=== PATIENT | female | born 1975 | race Two or more races ===

== ENCOUNTER 2021-01-12 21:34 | Inpatient (IN) | payer MEDICAID ==
[~2021-01-12] VITALS: Ht 165.1 cm; Wt 56.2 kg
[2021-01-12] MEDS ORDERED: SODIUM CHLORIDE 0.9% 1,000 ML IV ONE ×2 (22:30→23:15)
[2021-01-12] MEDS ORDERED: ONDANSETRON HCL 4 MG/2 ML VIAL IV ONE (22:30)
[2021-01-12] MEDS ORDERED: MORPHINE SULFATE 4 MG/ML SYR/VIAL IV ONE (22:30)
[2021-01-12 22:31] LABS: Basophils # (auto) 0.1 10 ^3/uL (0-0.2); Eosinophils # (auto) 0 10 ^3/uL (0-0.8); Eosinophils % (auto) 0.3 % (0.0-7.0); Hematocrit 42.3 % (36.0-46.0); Hemoglobin 14.3 g/dL (12.2-16.2); Lymphocytes % (auto) 12.4 % (10.0-50.0); Mean Corpuscular Hemoglobin 29.4 pg (28.0-32.0); Mean Corpuscular Hgb Conc. 33.8 g/dL (32.0-36.0); Mean Corpuscular Volume 86.9 fL (80.0-100.0); Monocytes # (auto) 0.2 10 ^3/uL (0-1.3); Monocytes % (auto) 3.1 % (0.0-12.0); Neutrophils # (auto) 6.7 10 ^3/uL (1.6-8.6); Neutrophils % (auto) 83.2 % (37.0-80.0); Red Blood Cells 4.87 10^6/uL (4.0-5.20); Red Cell Distribution Width 18.9 % (11.8-14.3)
[2021-01-12 22:51] LABS: Albumin 4.4 g/dL (3.4-5.0); BUN/Creatinine Ratio 9.9; Calcium 9.5 mg/dL (8.5-10.1); Magnesium 2.3 mg/dL (1.6-2.6); Potassium 3.1 mmol/L (3.5-5.1)
[2021-01-12 22:52] LABS: INR 1.08 (0.9-1.15); Partial Thromboplastin Time 22.9 sec (23.0-31.2)
[2021-01-12 22:57] LABS: Lactic Acid w/Reflex 2.6 mmol/L (0.4-2.0)
[2021-01-12 22:58] LABS: Bilirubin, Total 0.9 mg/dL (0.2-1.0); Total Protein 8.9 g/dL (6.4-8.2)
[2021-01-12] MEDS ORDERED: IOHEXOL 300 MG/ML 100ML BOTTLE IJ ONE (23:11)
[2021-01-12] MEDS ORDERED: VANCOMYCIN PER PHARMACY 0 MG IV SCH (23:15)
[2021-01-12] MEDS ORDERED: PIPERACILLIN-TAZOB 3.375GM 100 ML IV ONE (23:15)
[2021-01-12] MEDS ORDERED: VANCOMYCIN 1GM/250ML 250 ML IV ONE (23:30)
[2021-01-12] MEDS ORDERED: PROMETHAZINE HCL 25 MG/ML 1ML IV ONE (23:30)
[2021-01-12] MEDS ORDERED: HYDROmorphone HCL 2 MG/ML VL IV ONE (23:30)
[2021-01-13] MEDS ORDERED: HYDROmorphone HCL 2 MG/ML VL IV ONE (00:15)
[2021-01-13 00:19] LABS: Urine Bacteria FEW /hpf (None Seen); Urine Blood Negative /uL (Negative); Urine Mucus FEW (None Seen); Urine Specific Gravity 1.015 (1.001-1.035); Urine WBC <1 /hpf (0 - 5)
[2021-01-13] MEDS ORDERED: POTASSIUM CHL 20MEQ/100ML 100 ML IV ONE (01:30)
[2021-01-13] MEDS ORDERED: ONDANSETRON HCL 4 MG/2 ML VIAL IV PRN (05:00)
[2021-01-13] MEDS ORDERED: NITROGLYCERIN 0.4 MG SL TAB SL PRN (05:00)
[2021-01-13] MEDS: SODIUM CHLORIDE 0.9% 1,000 ML IV SCH ×2 (05:00→21:07)
[2021-01-13] MEDS ORDERED: MORPHINE SULFATE INJECTION 2 MG/ML SYRG IV PRN (05:00)
[2021-01-13] MEDS: HYDROcodone-ACET 5/325MG TAB PO PRN (05:40)
[2021-01-13] MEDS ORDERED: TRAZ300T16 PO (06:58)
[2021-01-13] MEDS ORDERED: OMEP20TA PO (06:58)
[2021-01-13] MEDS ORDERED: HYDR-4072 PO (06:58)
[2021-01-13] MEDS ORDERED: PROMETHAZINE HCL 25 MG/ML 1ML IV PRN (07:15)
[2021-01-13] MEDS ORDERED: HYDROmorphone HCL 2 MG/ML VL IV PRN (07:15)
[2021-01-13 08:00] VITALS: BP 122/68
[2021-01-13 08:11] LABS: Basophils # (auto) 0.1 10 ^3/uL (0-0.2); Basophils % (auto) 1.1 % (0.0-2.0); Eosinophils # (auto) 0 10 ^3/uL (0-0.8); Eosinophils % (auto) 0.3 % (0.0-7.0); Hematocrit 34.4 % (36.0-46.0); Hemoglobin 11.5 g/dL (12.2-16.2); Lymphocytes # (auto) 2.1 10 ^3/uL (0.4-5.4); Lymphocytes % (auto) 21.9 % (10.0-50.0); Mean Corpuscular Hemoglobin 29.6 pg (28.0-32.0); Mean Corpuscular Hgb Conc. 33.5 g/dL (32.0-36.0); Mean Corpuscular Volume 88.4 fL (80.0-100.0); Monocytes # (auto) 0.8 10 ^3/uL (0-1.3); Monocytes % (auto) 8.3 % (0.0-12.0); Neutrophils # (auto) 6.7 10 ^3/uL (1.6-8.6); Neutrophils % (auto) 68.4 % (37.0-80.0); Red Blood Cells 3.89 10^6/uL (4.0-5.20); Red Cell Distribution Width 19.1 % (11.8-14.3); White Blood Cell 9.8 10^3/uL (4.4-10.8)
[2021-01-13 08:30] LABS: Calcium 8.2 mg/dL (8.5-10.1); Potassium 3.7 mmol/L (3.5-5.1)
[2021-01-13 08:34] LABS: BUN/Creatinine Ratio 14.3; Bilirubin, Total 0.9 mg/dL (0.2-1.0); Total Protein 6.3 g/dL (6.4-8.2)
[2021-01-13 08:35] VITALS: BP 122/68
[2021-01-13] MEDS: ENOXAPARIN SOD 40 MG/0.4 ML SYRINGE SC SCH (10:00)
[2021-01-13] MEDS: FAMOTIDINE (10MG/ML) 2ML VL IV SCH ×2 (10:34→21:08)
[2021-01-13] MEDS ORDERED: VANCOMYCIN 1GM/250ML 250 ML IV SCH (11:00)
[2021-01-13 12:30] VITALS: BP 98/57
[2021-01-13] MEDS: PROMETHAZINE HCL 25 MG/ML 1ML IV PRN ×2 (13:15→21:08)
[2021-01-13] MEDS: HYDROmorphone HCL 2 MG/ML VL IV PRN ×2 (13:15→21:08)
[2021-01-13] MEDS ORDERED: cefTRIAXone 1GM/50ML D5W 50 ML IV ONE (13:30)
[2021-01-13] MEDS: metroNIDAZOLE 500MG/100ML 100 ML IV SCH ×2 (14:02→21:56)
[2021-01-13 16:33] VITALS: BP 110/71
[2021-01-13 22:00] VITALS: BP 124/71
[2021-01-14 00:43] LABS: Amphetamine Screen, Urine NEGATIVE (NEGATIVE); Barbiturate Scree,Urine NEGATIVE (NEGATIVE); Benzodiazephine Screen, Urine NEGATIVE (NEGATIVE); Cannabinoid Screen, Urine NEGATIVE (NEGATIVE); Cocaine Screen, Urine NEGATIVE (NEGATIVE); Opiate Scree,Urine NEGATIVE (NEGATIVE); Phencyclidine Screen, Urine NEGATIVE (NEGATIVE)
[2021-01-14] MEDS: HYDROmorphone HCL 2 MG/ML VL IV PRN ×5 (01:08→23:11)
[2021-01-14] MEDS: PROMETHAZINE HCL 25 MG/ML 1ML IV PRN ×5 (01:08→23:11)
[2021-01-14 05:03] VITALS: BP 131/73
[2021-01-14] MEDS: metroNIDAZOLE 500MG/100ML 100 ML IV SCH ×3 (05:36→21:50)
[2021-01-14 08:15] LABS: Basophils # (auto) 0 10 ^3/uL (0-0.2); Basophils % (auto) 0.8 % (0.0-2.0); Eosinophils # (auto) 0.2 10 ^3/uL (0-0.8); Eosinophils % (auto) 3.7 % (0.0-7.0); Hemoglobin 11.3 g/dL (12.2-16.2); Lymphocytes # (auto) 2.2 10 ^3/uL (0.4-5.4); Lymphocytes % (auto) 36.1 % (10.0-50.0); Mean Corpuscular Hemoglobin 28.8 pg (28.0-32.0); Mean Corpuscular Hgb Conc. 32.3 g/dL (32.0-36.0); Monocytes # (auto) 0.5 10 ^3/uL (0-1.3); Monocytes % (auto) 8.5 % (0.0-12.0); Neutrophils # (auto) 3.1 10 ^3/uL (1.6-8.6); Neutrophils % (auto) 50.9 % (37.0-80.0); Nucleated Red Blood Cells % 0.1 %; Red Blood Cells 3.93 10^6/uL (4.0-5.20); Red Cell Distribution Width 18.9 % (11.8-14.3); White Blood Cell 6.2 10^3/uL (4.4-10.8)
[2021-01-14 08:39] VITALS: BP 111/78
[2021-01-14 08:55] LABS: Albumin 2.9 g/dL (3.4-5.0); Calcium 8.5 mg/dL (8.5-10.1); Magnesium 2.4 mg/dL (1.6-2.6); Potassium 3.8 mmol/L (3.5-5.1)
[2021-01-14 09:03] LABS: BUN/Creatinine Ratio 12.7; Bilirubin, Total 0.5 mg/dL (0.2-1.0); Total Protein 5.8 g/dL (6.4-8.2)
[2021-01-14] MEDS: cefTRIAXone 1GM/50ML D5W 50 ML IV SCH (09:04)
[2021-01-14] MEDS: FAMOTIDINE (10MG/ML) 2ML VL IV SCH ×2 (09:05→21:51)
[2021-01-14] MEDS: ENOXAPARIN SOD 40 MG/0.4 ML SYRINGE SC SCH (09:05)
[2021-01-14 12:33] VITALS: BP 119/73
[2021-01-14] MEDS ORDERED: DOCUSATE SOD 100 MG CAP PO PRN (13:45)
[2021-01-14] MEDS: SODIUM CHLORIDE 0.9% 1,000 ML IV SCH (15:01)
[2021-01-14 16:34] VITALS: BP 114/71
[2021-01-14 21:31] VITALS: BP 135/87
[2021-01-15] MEDS: PROMETHAZINE HCL 25 MG/ML 1ML IV PRN ×3 (03:24→22:17)
[2021-01-15] MEDS: HYDROmorphone HCL 2 MG/ML VL IV PRN (03:24)
[2021-01-15 04:49] VITALS: BP 123/78
[2021-01-15] MEDS: SODIUM CHLORIDE 0.9% 1,000 ML IV SCH (05:42)
[2021-01-15] MEDS: metroNIDAZOLE 500MG/100ML 100 ML IV SCH ×3 (05:42→21:08)
[2021-01-15 06:17] LABS: Magnesium 2.2 mg/dL (1.6-2.6); Potassium 3.8 mmol/L (3.5-5.1)
[2021-01-15 08:30] VITALS: BP 138/79
[2021-01-15] MEDS: cefTRIAXone 1GM/50ML D5W 50 ML IV SCH (09:06)
[2021-01-15] MEDS: FAMOTIDINE (10MG/ML) 2ML VL IV SCH (09:07)
[2021-01-15] MEDS: ENOXAPARIN SOD 40 MG/0.4 ML SYRINGE SC SCH (09:07)
[2021-01-15] MEDS ORDERED: MORPHINE SULFATE INJECTION 2 MG/ML SYRG IV PRN (09:15)
[2021-01-15] MEDS ORDERED: PANTOPRAZOLE 40 MG/10 ML VIAL INJ IV ONE (11:15)
[2021-01-15 12:30] VITALS: BP 146/87
[2021-01-15 16:30] VITALS: BP 154/91
[2021-01-15] MEDS: HYDROcodone-ACET 5/325MG TAB PO PRN ×2 (18:23→23:20)
[2021-01-15] MEDS: KETOROLAC TROMETH 30 MG/ML 1ML VIAL IV PRN (19:46)
[2021-01-15] MEDS ORDERED: MORPHINE SULFATE INJECTION 2 MG/ML SYRG IV ONE (21:00)
[2021-01-15] MEDS: PANTOPRAZOLE 40 MG/10 ML VIAL INJ IV SCH (21:08)
[2021-01-15 22:00] VITALS: BP 163/105
[2021-01-15] MEDS: ACETAMINOPHEN 325 MG TAB PO PRN (22:18)
[2021-01-16] MEDS ORDERED: dilTIAZem 25 MG/5 ML VIAL IV ONE (01:15)
[2021-01-16] MEDS: KETOROLAC TROMETH 30 MG/ML 1ML VIAL IV PRN ×4 (01:25→17:43)
[2021-01-16] MEDS: PROMETHAZINE HCL 25 MG/ML 1ML IV PRN ×5 (03:12→23:00)
[2021-01-16] MEDS: HYDROcodone-ACET 5/325MG TAB PO PRN ×4 (03:13→23:01)
[2021-01-16 05:00] VITALS: BP 172/87
[2021-01-16] MEDS ORDERED: NALBUPHINE HCL 10 MG/1ml INJECTION IV ONE (05:15)
[2021-01-16] MEDS ORDERED: MORPHINE SULFATE INJECTION 2 MG/ML SYRG IV ONE (05:30)
[2021-01-16] MEDS: metroNIDAZOLE 500MG/100ML 100 ML IV SCH ×3 (05:54→22:49)
[2021-01-16] MEDS: cefTRIAXone 1GM/50ML D5W 50 ML IV SCH (08:27)
[2021-01-16 09:00] VITALS: BP 154/98
[2021-01-16] MEDS: PANTOPRAZOLE 40 MG/10 ML VIAL INJ IV SCH ×2 (09:20→22:49)
[2021-01-16] MEDS: ENOXAPARIN SOD 40 MG/0.4 ML SYRINGE SC SCH (09:21)
[2021-01-16] MEDS ORDERED: LACTULOSE 20Gm/30ML SOLN PO PRN (10:00)
[2021-01-16] MEDS: MORPHINE SULFATE INJECTION 2 MG/ML SYRG IV PRN ×3 (10:51→19:58)
[2021-01-16] MEDS ORDERED: IOHEXOL 300 MG/ML 100ML BOTTLE IJ ONE (11:57)
[2021-01-16 13:08] VITALS: BP 162/91
[2021-01-16] MEDS: SUCRALFATE 1 GM/10 ML ORAL SUSP PO SCH ×2 (16:52→22:49)
[2021-01-16 17:00] VITALS: BP 152/107
[2021-01-16] MEDS: LABETALOL HCL 5 MG/ML 4ML SYRINGE IV PRN (17:43)
[2021-01-16 22:00] VITALS: BP 158/95
[2021-01-17] MEDS: MORPHINE SULFATE INJECTION 2 MG/ML SYRG IV PRN ×5 (01:00→21:45)
[2021-01-17 05:00] VITALS: BP 154/106
[2021-01-17] MEDS: KETOROLAC TROMETH 30 MG/ML 1ML VIAL IV PRN ×2 (05:01→22:57)
[2021-01-17] MEDS: PROMETHAZINE HCL 25 MG/ML 1ML IV PRN ×4 (05:07→21:44)
[2021-01-17] MEDS: LABETALOL HCL 5 MG/ML 4ML SYRINGE IV PRN ×3 (05:30→22:57)
[2021-01-17] MEDS: metroNIDAZOLE 500MG/100ML 100 ML IV SCH ×3 (06:29→21:40)
[2021-01-17] MEDS: SUCRALFATE 1 GM/10 ML ORAL SUSP PO SCH ×4 (06:33→21:45)
[2021-01-17 07:18] LABS: Basophils # (auto) 0 10 ^3/uL (0-0.2); Basophils % (auto) 0.4 % (0.0-2.0); Eosinophils # (auto) 0 10 ^3/uL (0-0.8); Eosinophils % (auto) 0.1 % (0.0-7.0); Hematocrit 41.3 % (36.0-46.0); Hemoglobin 13.7 g/dL (12.2-16.2); Lymphocytes # (auto) 1.6 10 ^3/uL (0.4-5.4); Mean Corpuscular Hemoglobin 28.9 pg (28.0-32.0); Mean Corpuscular Hgb Conc. 33.1 g/dL (32.0-36.0); Mean Corpuscular Volume 87.4 fL (80.0-100.0); Monocytes # (auto) 0.9 10 ^3/uL (0-1.3); Monocytes % (auto) 9.3 % (0.0-12.0); Neutrophils # (auto) 6.9 10 ^3/uL (1.6-8.6); Neutrophils % (auto) 73.2 % (37.0-80.0); Nucleated Red Blood Cells % 0.1 %; Red Blood Cells 4.73 10^6/uL (4.0-5.20); Red Cell Distribution Width 17.6 % (11.8-14.3); White Blood Cell 9.4 10^3/uL (4.4-10.8)
[2021-01-17 07:40] LABS: BUN/Creatinine Ratio 13.7; Calcium 9.2 mg/dL (8.5-10.1); Magnesium 2.4 mg/dL (1.6-2.6)
[2021-01-17 07:52] LABS: Potassium 2.9 mmol/L (3.5-5.1)
[2021-01-17] MEDS: ENOXAPARIN SOD 40 MG/0.4 ML SYRINGE SC SCH (08:59)
[2021-01-17 09:00] VITALS: BP 149/108
[2021-01-17] MEDS: cefTRIAXone 1GM/50ML D5W 50 ML IV SCH (09:11)
[2021-01-17] MEDS: PANTOPRAZOLE 40 MG/10 ML VIAL INJ IV SCH ×2 (09:11→21:44)
[2021-01-17] MEDS ORDERED: POTASSIUM CHLORIDE 40 MEQ, LIDOCAINE 1% (LOCAL ANESTH.) 4 ML in SODIUM CHL 0.9% 250 ML IV ONE (09:15)
[2021-01-17] MEDS ORDERED: ONDANSETRON HCL 4 MG/2 ML VIAL IV PRN ×2 (11:30→13:30)
[2021-01-17] MEDS ORDERED: fentaNYL CITRATE 100 MCG/2 ML VL IV PRN (11:30)
[2021-01-17] MEDS ORDERED: HYDROmorphone HCL 2 MG/ML VL IV PRN (11:30)
[2021-01-17] MEDS ORDERED: MORPHINE SULFATE 4 MG/ML SYR/VIAL IV PRN (11:30)
[2021-01-17] MEDS ORDERED: amLODIPine BESYLATE 5 MG TAB PO ONE (12:15)
[2021-01-17] MEDS ORDERED: LISINOPRIL 20 MG TAB PO ONE (12:15)
[2021-01-17 13:00] VITALS: BP 155/111
[2021-01-17] MEDS ORDERED: fentaNYL CITRATE 100 MCG/2 ML VL ONE (13:05)
[2021-01-17] MEDS ORDERED: GOLYTELY 4L KIT PO ONE (14:30)
[2021-01-17] MEDS: METOCLOPRAMIDE HCL 5MG/ml INJ 2ml VIAL IV SCH ×2 (14:58→21:44)
[2021-01-17] MEDS: HYDROcodone-ACET 5/325MG TAB PO PRN (15:23)
[2021-01-17 16:55] VITALS: BP 125/74
[2021-01-17] MEDS: VANCOMYCIN HCL 125MG/5ML ORAL SOL PO SCH ×2 (17:52→21:46)
[2021-01-17] MEDS: ACETAMINOPHEN 325 MG TAB PO PRN (21:45)
[2021-01-17 22:00] VITALS: BP 151/112
[2021-01-18] MEDS: HYDROcodone-ACET 5/325MG TAB PO PRN ×3 (00:38→14:05)
[2021-01-18] MEDS: PROMETHAZINE HCL 25 MG/ML 1ML IV PRN ×4 (01:47→14:05)
[2021-01-18] MEDS: MORPHINE SULFATE INJECTION 2 MG/ML SYRG IV PRN ×3 (01:47→09:51)
[2021-01-18] MEDS: KETOROLAC TROMETH 30 MG/ML 1ML VIAL IV PRN ×2 (05:00→12:35)
[2021-01-18] MEDS: LABETALOL HCL 5 MG/ML 4ML SYRINGE IV PRN (05:12)
[2021-01-18] MEDS: METOCLOPRAMIDE HCL 5MG/ml INJ 2ml VIAL IV SCH (05:12)
[2021-01-18] MEDS: metroNIDAZOLE 500MG/100ML 100 ML IV SCH (05:13)
[2021-01-18 05:27] VITALS: BP 160/104
[2021-01-18] MEDS: VANCOMYCIN HCL 125MG/5ML ORAL SOL PO SCH ×2 (05:38→12:22)
[2021-01-18] MEDS: SUCRALFATE 1 GM/10 ML ORAL SUSP PO SCH ×2 (06:30→12:21)
[2021-01-18 07:53] LABS: Magnesium 2.6 mg/dL (1.6-2.6); Potassium 3.3 mmol/L (3.5-5.1)
[2021-01-18] MEDS: cefTRIAXone 1GM/50ML D5W 50 ML IV SCH (09:04)
[2021-01-18] MEDS: PANTOPRAZOLE 40 MG/10 ML VIAL INJ IV SCH (09:05)
[2021-01-18] MEDS: ENOXAPARIN SOD 40 MG/0.4 ML SYRINGE SC SCH (09:06)
[2021-01-18 09:21] VITALS: BP 160/105
[2021-01-18] MEDS ORDERED: amLODIPine BESYLATE 5 MG TAB PO SCH (10:00)
[2021-01-18] MEDS ORDERED: LISINOPRIL 20 MG TAB PO SCH (10:00)
[2021-01-18] MEDS ORDERED: POTASSIUM CHL 20 Meq TABLET PO ONE (11:15)
[2021-01-18] MEDS ORDERED: VANC125PO PO (11:16)
[2021-01-18] MEDS ORDERED: SUCR1TAB22 PO (11:16)
[2021-01-18] MEDS ORDERED: MET25T PO (11:49)
[2021-01-18] MEDS ORDERED: LISI20TA28 PO (11:49)
[2021-01-18] MEDS ORDERED: METOPROLOL TARTRATE 25 MG TAB PO ONE (12:00)
[2021-01-18 13:00] VITALS: BP 161/107
[2021-01-18] MEDS ORDERED: PANT40TA2 PO (13:33)
[2021-01-18] MEDS ORDERED: PANTOPRAZOLE 40 MG TAB PO ONE (14:00)
[2021-01-18 14:13] VITALS: BP 131/89
[2021-01-18] MEDS ORDERED: METOPROLOL TARTRATE 25 MG TAB PO SCH (22:00)
[2021-01-19] MEDS ORDERED: PANTOPRAZOLE 40 MG TAB PO SCH (10:00)
== END 2021-01-18 16:00 | disposition home or self-care (01) | DRG 248 ==
LOC: EDBD 21:34 → ER 21:48 → TELE 01-13 04:58 → TELE-EAST 01-13 06:29
PROVIDERS: ADMIT Nurse Practitioner Family; ATTEND Internal Medicine
PROC: 0DJ08ZZ Inspection of Upper Intestinal Tract, Via Natural or Artificial Opening Endoscopic (ICD-10-PCS; principal; 2021-01-17 13:07)
DX: A04.72 Enterocolitis due to Clostridium difficile, not specified as recurrent (principal); E87.2 Acidosis; Z20.822 Contact with and (suspected) exposure to COVID-19; K29.80 Duodenitis without bleeding; D47.3 Essential (hemorrhagic) thrombocythemia; E87.6 Hypokalemia; K21.00 Gastro-esophageal reflux disease with esophagitis, without bleeding; I10 Essential (primary) hypertension; K59.00 Constipation, unspecified; G89.4 Chronic pain syndrome; M19.90 Unspecified osteoarthritis, unspecified site; K21.9 Gastro-esophageal reflux disease without esophagitis; Z90.49 Acquired absence of other specified parts of digestive tract; Z90.710 Acquired absence of both cervix and uterus
CPT/HCPCS: 36415; 43235; 74177; 74178; 76705; 80048; 80053; 80307; 81001; 82150; 83036; 83605; 83690; 83735; 83880; 84132; 84702; 85025; 85610; 85730; 87040; 87045; 87086; 87426; 87427; 87493; 96361; 96365; 96366; 96375; 96376; C9113; G0378; J0696; J1885; J2001; J2405; J2543; J3480; J3490

== ENCOUNTER 2021-01-24 18:27 | Inpatient (IN) | payer MEDICAID ==
[~2021-01-24] VITALS: Ht 165.1 cm; Wt 60.8 kg
[~2021-01-24 18:27] MED LIST: HYDR-4072 PO; LISI20TA28 PO; MET25T PO; PANT40TA2 PO; SUCR1TAB22 PO; TRAZ300T16 PO; VANC125PO PO
[2021-01-24] MEDS ORDERED: SODIUM CHLORIDE 0.9% 1,000 ML IV ONE ×2 (20:30→21:30)
[2021-01-24 20:45] LABS: Basophils # (auto) 0.1 10 ^3/uL (0-0.2); Basophils % (auto) 0.5 % (0.0-2.0); Eosinophils # (auto) 0.4 10 ^3/uL (0-0.8); Eosinophils % (auto) 2.2 % (0.0-7.0); Hematocrit 37.2 % (36.0-46.0); Hemoglobin 12.2 g/dL (12.2-16.2); Lymphocytes # (auto) 3.2 10 ^3/uL (0.4-5.4); Lymphocytes % (auto) 16.6 % (10.0-50.0); Mean Corpuscular Hgb Conc. 32.7 g/dL (32.0-36.0); Mean Corpuscular Volume 88.6 fL (80.0-100.0); Monocytes # (auto) 0.8 10 ^3/uL (0-1.3); Monocytes % (auto) 4.1 % (0.0-12.0); Neutrophils # (auto) 14.9 10 ^3/uL (1.6-8.6); Neutrophils % (auto) 76.6 % (37.0-80.0); Platelet Count (auto) 254 10^3/uL (140-450); Red Cell Distribution Width 16.2 % (11.8-14.3); White Blood Cell 19.5 10^3/uL (4.4-10.8)
[2021-01-24 20:59] LABS: Albumin 3.8 g/dL (3.4-5.0); Anion Gap 17 (5-15); BUN/Creatinine Ratio 12.3; Blood Alcohol < 3.0 mg/dL (0-5); Blood Urea Nitrogen 39 mg/dL (7-18); Calcium 9.6 mg/dL (8.5-10.1); Carbon Dioxide 20 mmol/L (21-32); Chloride 96 mmol/L (98-107); GFR African American 21 mL/min; GFR Non-African American 17 mL/min; Glucose 57 mg/dL (74-106); Potassium 3.1 mmol/L (3.5-5.1); Sodium 133 mmol/L (136-145)
[2021-01-24 21:02] LABS: Alanine Aminotransferase 315 U/L (13-56); Alkaline Phosphatase 179 U/L (45-117); Aspartate Aminotransferase 155 U/L (15-37); Bilirubin, Total 2.1 mg/dL (0.2-1.0); Total Protein 6.8 g/dL (6.4-8.2)
[2021-01-24 21:10] LABS: Salicylate < 1.7 mg/dL (2.8-20.0)
[2021-01-24 21:27] LABS: Acetaminophen 71.1 ug/mL (10-30)
[2021-01-24 21:40] LABS: INR 1.25 (0.9-1.15)
[2021-01-24 23:47] LABS: Urine Bacteria NONE SEEN /hpf (None Seen); Urine Blood 2+ /uL (Negative); Urine Mucus FEW (None Seen); Urine WBC 16 /hpf (0 - 5)
[2021-01-24 23:55] LABS: Amphetamine Screen, Urine NEGATIVE (NEGATIVE); Barbiturate Scree,Urine NEGATIVE (NEGATIVE); Benzodiazephine Screen, Urine NEGATIVE (NEGATIVE); Cannabinoid Screen, Urine NEGATIVE (NEGATIVE); Cocaine Screen, Urine NEGATIVE (NEGATIVE)
[2021-01-25 00:03] LABS: Opiate Scree,Urine POSITIVE (NEGATIVE); Phencyclidine Screen, Urine NEGATIVE (NEGATIVE)
[2021-01-25] MEDS ORDERED: diphenhdrAMINE HCL 50 MG/1 ML VL IV ONE (08:15)
[2021-01-25] MEDS ORDERED: SODIUM CHLORIDE 0.9% 1,000 ML IV ONE (08:15)
[2021-01-25] MEDS ORDERED: ACETYLCYSTEINE PO FOR APAP TOX 200 MG/ML ML PO ONE ×2 (08:30→09:15)
[2021-01-25] MEDS ORDERED: cefTRIAXone 1GM/50ML D5W 50 ML IV ONE (08:30)
[2021-01-25 09:59] LABS: Magnesium 2.6 mg/dL (1.6-2.6)
[2021-01-25 10:00] LABS: Albumin 3.3 g/dL (3.4-5.0)
[2021-01-25 10:05] LABS: Bilirubin, Direct 1.4 mg/dL (0-0.2); Bilirubin, Total 2.4 mg/dL (0.2-1.0); Total Protein 6.2 g/dL (6.4-8.2)
[2021-01-25 10:15] LABS: INR 1.29 (0.9-1.15)
[2021-01-25] MEDS ORDERED: POTASSIUM CHL 20 Meq TABLET PO ONE (10:45)
[2021-01-25] MEDS ORDERED: NITROGLYCERIN 0.4 MG SL TAB SL PRN (10:45)
[2021-01-25] MEDS ORDERED: MORPHINE SULF INJ 2 MG/ML SYRINGE 1ML IV PRN (10:45)
[2021-01-25] MEDS: SOD CHL 0.45% 1,000 ML IV SCH ×2 (11:40→22:10)
[2021-01-25] MEDS: VANCOMYCIN HCL 125MG/5ML ORAL SOL PO SCH ×3 (12:22→21:58)
[2021-01-25 15:00] VITALS: BP 108/59
[2021-01-25 15:12] VITALS: BP 108/59
[2021-01-25 15:44] LABS: Basophils # (auto) 0.1 10 ^3/uL (0-0.2); Basophils % (auto) 0.6 % (0.0-2.0); Eosinophils # (auto) 0.5 10 ^3/uL (0-0.8); Eosinophils % (auto) 3.2 % (0.0-7.0); Hematocrit 34.3 % (36.0-46.0); Hemoglobin 11.6 g/dL (12.2-16.2); Lymphocytes # (auto) 1.9 10 ^3/uL (0.4-5.4); Lymphocytes % (auto) 12.5 % (10.0-50.0); Mean Corpuscular Hemoglobin 29.6 pg (28.0-32.0); Mean Corpuscular Hgb Conc. 33.7 g/dL (32.0-36.0); Mean Corpuscular Volume 87.6 fL (80.0-100.0); Monocytes # (auto) 0.7 10 ^3/uL (0-1.3); Monocytes % (auto) 4.9 % (0.0-12.0); Neutrophils # (auto) 11.7 10 ^3/uL (1.6-8.6); Neutrophils % (auto) 78.8 % (37.0-80.0); Platelet Count (auto) 208 10^3/uL (140-450); Red Blood Cells 3.91 10^6/uL (4.0-5.20); Red Cell Distribution Width 16.5 % (11.8-14.3); White Blood Cell 14.9 10^3/uL (4.4-10.8)
[2021-01-25] MEDS ORDERED: DICY20TA PO (15:57)
[2021-01-25] MEDS ORDERED: IBUP800T26 PO (15:57)
[2021-01-25] MEDS ORDERED: PREG150C PO (15:57)
[2021-01-25] MEDS ORDERED: ONDA-144 PO (15:57)
[2021-01-25] MEDS ORDERED: ALBU108A5 IN (15:57)
[2021-01-25] MEDS ORDERED: TRAZ100T3 PO (15:57)
[2021-01-25] MEDS ORDERED: BECL40AE11 IN (15:57)
[2021-01-25] MEDS ORDERED: SUMAPOW3 XX (15:57)
[2021-01-25 16:03] LABS: Alanine Aminotransferase 208 U/L (13-56); Albumin 2.9 g/dL (3.4-5.0); Anion Gap 14 (5-15); Aspartate Aminotransferase 67 U/L (15-37); BUN/Creatinine Ratio 18.8; Blood Urea Nitrogen 29 mg/dL (7-18); Calcium 9.2 mg/dL (8.5-10.1); Carbon Dioxide 18 mmol/L (21-32); Chloride 103 mmol/L (98-107); GFR African American 47 mL/min; GFR Non-African American 39 mL/min; Glucose 89 mg/dL (74-106); Potassium 3.4 mmol/L (3.5-5.1); Sodium 135 mmol/L (136-145)
[2021-01-25 16:06] LABS: Alkaline Phosphatase 205 U/L (45-117); Bilirubin, Total 1.5 mg/dL (0.2-1.0); Total Protein 6.1 g/dL (6.4-8.2)
[2021-01-25] MEDS: ACETYLCYSTEINE PO FOR APAP TOX 200 MG/ML ML PO SCH ×3 (16:16→22:10)
[2021-01-25 17:00] VITALS: BP 115/65
[2021-01-25 21:52] VITALS: BP 124/78
[2021-01-25] MEDS: METOPROLOL TARTRATE 25 MG TAB PO SCH (21:59)
[2021-01-26] MEDS: ACETYLCYSTEINE PO FOR APAP TOX 200 MG/ML ML PO SCH ×6 (02:39→21:53)
[2021-01-26 05:30] VITALS: BP 131/83
[2021-01-26] MEDS: VANCOMYCIN HCL 125MG/5ML ORAL SOL PO SCH ×4 (06:09→21:53)
[2021-01-26 06:20] LABS: Basophils # (auto) 0 10 ^3/uL (0-0.2); Basophils % (auto) 0.3 % (0.0-2.0); Eosinophils # (auto) 0.4 10 ^3/uL (0-0.8); Eosinophils % (auto) 3.8 % (0.0-7.0); Hematocrit 31.8 % (36.0-46.0); Hemoglobin 10.9 g/dL (12.2-16.2); Lymphocytes # (auto) 1.4 10 ^3/uL (0.4-5.4); Lymphocytes % (auto) 11.8 % (10.0-50.0); Mean Corpuscular Hemoglobin 30.2 pg (28.0-32.0); Mean Corpuscular Hgb Conc. 34.3 g/dL (32.0-36.0); Mean Corpuscular Volume 88.1 fL (80.0-100.0); Monocytes # (auto) 0.6 10 ^3/uL (0-1.3); Neutrophils # (auto) 9.3 10 ^3/uL (1.6-8.6); Neutrophils % (auto) 79.1 % (37.0-80.0); Nucleated Red Blood Cells % 0.1 %; Platelet Count (auto) 183 10^3/uL (140-450); Red Blood Cells 3.62 10^6/uL (4.0-5.20); Red Cell Distribution Width 16.6 % (11.8-14.3); White Blood Cell 11.7 10^3/uL (4.4-10.8)
[2021-01-26 06:35] LABS: Albumin 2.5 g/dL (3.4-5.0); Calcium 8.1 mg/dL (8.5-10.1); Potassium 3.4 mmol/L (3.5-5.1)
[2021-01-26 06:41] LABS: BUN/Creatinine Ratio 17.2; Bilirubin, Total 0.6 mg/dL (0.2-1.0); Total Protein 5.4 g/dL (6.4-8.2)
[2021-01-26] MEDS: SOD CHL 0.45% 1,000 ML IV SCH (06:52)
[2021-01-26 08:00] VITALS: BP 151/95
[2021-01-26] MEDS ORDERED: POTASSIUM EFFERVESENT TAB 25 MEQ PO ONE (09:00)
[2021-01-26] MEDS ORDERED: SODIUM CHLORIDE 0.9% 1,000 ML IV ONE (09:00)
[2021-01-26] MEDS: METOPROLOL TARTRATE 25 MG TAB PO SCH ×2 (10:19→22:18)
[2021-01-26] MEDS: cefTRIAXone 1GM/50ML D5W 50 ML IV SCH (10:19)
[2021-01-26 12:00] VITALS: BP 162/100
[2021-01-26] MEDS ORDERED: hydrALAZINE HCL 20 MG/ML VL IV PRN (15:00)
[2021-01-26] MEDS ORDERED: FOLIC ACID 1 MG, MULTIPLE VITAMIN 10 ML, MAGNESIUM SULF SDV 50% 8 MEQ, THIAMINE INJ 100... INJ ONE ×5 (15:15)
[2021-01-26 16:00] VITALS: BP 152/96
[2021-01-26] MEDS: MORPHINE SULF INJ 2 MG/ML SYRINGE 1ML IV PRN (21:52)
[2021-01-26 22:00] VITALS: BP 154/93
[2021-01-26 23:16] VITALS: BP 149/60
[2021-01-27] MEDS: MORPHINE SULF INJ 2 MG/ML SYRINGE 1ML IV PRN ×3 (02:31→10:49)
[2021-01-27] MEDS: ACETYLCYSTEINE PO FOR APAP TOX 200 MG/ML ML PO SCH ×4 (02:53→14:45)
[2021-01-27 05:00] VITALS: BP 143/69
[2021-01-27 06:04] LABS: Calcium 8.2 mg/dL (8.5-10.1)
[2021-01-27] MEDS: VANCOMYCIN HCL 125MG/5ML ORAL SOL PO SCH ×2 (06:07→12:00)
[2021-01-27 06:10] LABS: Albumin 2.7 g/dL (3.4-5.0); BUN/Creatinine Ratio 3.9; Bilirubin, Total 0.7 mg/dL (0.2-1.0); Total Protein 5.8 g/dL (6.4-8.2)
[2021-01-27 09:00] VITALS: BP 136/74
[2021-01-27] MEDS: METOPROLOL TARTRATE 25 MG TAB PO SCH (10:08)
[2021-01-27] MEDS: cefTRIAXone 1GM/50ML D5W 50 ML IV SCH (10:08)
[2021-01-27] MEDS ORDERED: FOLIC ACID 1 MG, MULTIPLE VITAMIN 10 ML, MAGNESIUM SULF SDV 50% 8 MEQ, THIAMINE INJ 100... INJ SCH ×5 (12:00)
[2021-01-27 17:10] VITALS: BP 148/101
[2021-01-27] MEDS ORDERED: VANCOMYCIN HCL 500MG/5ML ORAL SOL PO SCH (18:00)
== END 2021-01-27 17:00 | disposition home or self-care (01) | DRG 812 ==
LOC: ER 18:27 → TELE 18:28 → TELE-WESTW 01-25 10:48
PROVIDERS: ADMIT Nurse Practitioner Acute Care; ATTEND Internal Medicine
DX: T40.601A Poisoning by unspecified narcotics, accidental (unintentional), initial encounter (principal); N17.0 Acute kidney failure with tubular necrosis; R65.11 Systemic inflammatory response syndrome (SIRS) of non-infectious origin with acute organ dysfunction; N30.00 Acute cystitis without hematuria; E87.1 Hypo-osmolality and hyponatremia; E44.1 Mild protein-calorie malnutrition; K71.10 Toxic liver disease with hepatic necrosis, without coma; E86.0 Dehydration; F11.20 Opioid dependence, uncomplicated; T39.1X5A Adverse effect of 4-Aminophenol derivatives, initial encounter; G89.4 Chronic pain syndrome; E87.6 Hypokalemia; K21.00 Gastro-esophageal reflux disease with esophagitis, without bleeding; I10 Essential (primary) hypertension; Z68.22 Body mass index [BMI] 22.0-22.9, adult; F19.10 Other psychoactive substance abuse, uncomplicated; Z20.822 Contact with and (suspected) exposure to COVID-19; F32.9 Major depressive disorder, single episode, unspecified; F41.9 Anxiety disorder, unspecified; M19.90 Unspecified osteoarthritis, unspecified site; Z82.3 Family history of stroke; Z82.49 Family history of ischemic heart disease and other diseases of the circulatory system; Z90.49 Acquired absence of other specified parts of digestive tract; Z90.710 Acquired absence of both cervix and uterus; Z91.5 Personal history of self-harm; Y92.89 Other specified places as the place of occurrence of the external cause
CPT/HCPCS: 36415; 71046; 74176; 80053; 80076; 80307; 80320; 80329; 81001; 81025; 83605; 83690; 83735; 84484; 85025; 85610; 87081; 87426; 87493; 93005; 96361; 96365; 96375; G0378; J0696

== ENCOUNTER 2021-04-28 14:28 | Emergency (ER) | payer MEDICAID ==
[~2021-04-28] VITALS: Ht 162.6 cm; Wt 54.0 kg
[~2021-04-28 14:28] MED LIST changes: +ALBU108A5 IN; +BECL40AE11 IN; +DICY20TA PO; -HYDR-4072 PO; +ONDA-144 PO; +PREG150C PO; +SUMAPOW3 XX; +TRAZ100T3 PO; -TRAZ300T16 PO
[2021-04-28 14:30] VITALS: BP 158/94
[2021-04-28 15:39] LABS: Urine Bacteria NONE SEEN /hpf (None Seen); Urine Blood Negative /uL (Negative); Urine Mucus FEW (None Seen); Urine Specific Gravity 1.017 (1.001-1.035); Urine WBC 1 /hpf (0 - 5)
[2021-04-28] MEDS ORDERED: ONDANSETRON ODT 4 MG TAB PO ONE (15:45)
[2021-04-28 16:24] LABS: Basophils # (auto) 0.1 10 ^3/uL (0-0.2); Basophils % (auto) 0.7 % (0.0-2.0); Eosinophils # (auto) 0 10 ^3/uL (0-0.8); Eosinophils % (auto) 0.1 % (0.0-7.0); Hematocrit 45.9 % (36.0-46.0); Hemoglobin 15.4 g/dL (12.2-16.2); Lymphocytes # (auto) 1.2 10 ^3/uL (0.4-5.4); Mean Corpuscular Hemoglobin 28.9 pg (28.0-32.0); Mean Corpuscular Hgb Conc. 33.5 g/dL (32.0-36.0); Mean Corpuscular Volume 86.3 fL (80.0-100.0); Monocytes # (auto) 0.4 10 ^3/uL (0-1.3); Neutrophils # (auto) 7.6 10 ^3/uL (1.6-8.6); Neutrophils % (auto) 82.2 % (37.0-80.0); Red Blood Cells 5.31 10^6/uL (4.0-5.20); Red Cell Distribution Width 14.9 % (11.8-14.3); White Blood Cell 9.3 10^3/uL (4.4-10.8)
[2021-04-28] MEDS ORDERED: PROMETHAZINE HCL 25 MG/ML 1ML IV ONE (16:30)
[2021-04-28 16:37] LABS: Albumin 4.3 g/dL (3.4-5.0); Calcium 9.9 mg/dL (8.5-10.1); Potassium 3.3 mmol/L (3.5-5.1)
[2021-04-28 16:42] LABS: BUN/Creatinine Ratio 17.6; Bilirubin, Total 1.6 mg/dL (0.2-1.0); Total Protein 9.4 g/dL (6.4-8.2)
[2021-04-28 17:52] LABS: Amphetamine Screen, Urine NEGATIVE (NEGATIVE); Barbiturate Scree,Urine NEGATIVE (NEGATIVE); Benzodiazephine Screen, Urine NEGATIVE (NEGATIVE); Cannabinoid Screen, Urine NEGATIVE (NEGATIVE); Cocaine Screen, Urine NEGATIVE (NEGATIVE); Opiate Scree,Urine NEGATIVE (NEGATIVE); Phencyclidine Screen, Urine NEGATIVE (NEGATIVE)
== END 2021-04-28 19:54 | disposition left against medical advice (07) ==
LOC: ER 14:28
DX: R10.84 Generalized abdominal pain (principal); R11.2 Nausea with vomiting, unspecified; R19.7 Diarrhea, unspecified; K21.9 Gastro-esophageal reflux disease without esophagitis; I10 Essential (primary) hypertension; Z90.49 Acquired absence of other specified parts of digestive tract; Z90.710 Acquired absence of both cervix and uterus; Z79.899 Other long term (current) drug therapy
CPT/HCPCS: 36415; 74176; 80053; 80307; 81001; 81025; 85025; 96374; 99284; J2550; Q0162

== ENCOUNTER 2021-06-16 23:36 | Emergency (ER) | payer MEDICAID ==
[~2021-06-16] VITALS: Ht 162.6 cm; Wt 53.1 kg
[2021-06-17] MEDS ORDERED: SODIUM CHLORIDE 0.9% 1,000 ML IV ONE (11:45)
[2021-06-17] MEDS ORDERED: ONDANSETRON HCL 4 MG/2 ML VIAL IV ONE ×2 (11:45→16:45)
[2021-06-17] MEDS ORDERED: MORPHINE SULFATE 4 MG/ML SYR/VIAL IV ONE (11:45)
[2021-06-17] MEDS ORDERED: SODIUM CHLORIDE 0.9% 500 ML IVB ONE (11:45)
[2021-06-17 12:04] LABS: Albumin 4.3 g/dL (3.4-5.0); Calcium 9.8 mg/dL (8.5-10.1); Magnesium 2.3 mg/dL (1.6-2.6)
[2021-06-17 12:08] LABS: BUN/Creatinine Ratio 14.5; Bilirubin, Total 1.1 mg/dL (0.2-1.0)
[2021-06-17 12:16] LABS: Basophils # (auto) 0.1 10 ^3/uL (0-0.2); Basophils % (auto) 0.8 % (0.0-2.0); Eosinophils # (auto) 0 10 ^3/uL (0-0.8); Hematocrit 43.7 % (36.0-46.0); Hemoglobin 14.7 g/dL (12.2-16.2); Lymphocytes # (auto) 1.8 10 ^3/uL (0.4-5.4); Lymphocytes % (auto) 14.3 % (10.0-50.0); Mean Corpuscular Hemoglobin 28.5 pg (28.0-32.0); Mean Corpuscular Hgb Conc. 33.5 g/dL (32.0-36.0); Monocytes # (auto) 0.5 10 ^3/uL (0-1.3); Monocytes % (auto) 4.1 % (0.0-12.0); Neutrophils # (auto) 9.9 10 ^3/uL (1.6-8.6); Neutrophils % (auto) 80.8 % (37.0-80.0); Red Blood Cells 5.14 10^6/uL (4.0-5.20); Red Cell Distribution Width 16.4 % (11.8-14.3); White Blood Cell 12.3 10^3/uL (4.4-10.8)
[2021-06-17 12:24] LABS: Potassium 2.7 mmol/L (3.5-5.1)
[2021-06-17] MEDS ORDERED: POTASSIUM EFFERVESENT TAB 25 MEQ PO ONE (12:30)
[2021-06-17] MEDS ORDERED: diphenhdrAMINE HCL 50 MG/1 ML VL IV ONE (13:45)
[2021-06-17 14:35] LABS: Urine WBC None Seen /hpf (0 - 5)
[2021-06-17 14:48] LABS: Urine Bacteria NONE SEEN /hpf (None Seen); Urine Blood TRACE /uL (Negative); Urine Mucus FEW (None Seen); Urine Specific Gravity 1.009 (1.001-1.035)
[2021-06-17] MEDS ORDERED: cloNIDine HCL 0.1 MG TAB PO ONE (15:00)
[2021-06-17] MEDS ORDERED: IOHEXOL 300 MG/ML 100ML BOTTLE IJ ONE (15:08)
[2021-06-17] MEDS ORDERED: MORPHINE SULFATE INJECTION 2 MG/ML SYRG IV ONE (16:45)
[2021-06-17 17:43] VITALS: BP 177/98
== END 2021-06-17 19:06 | disposition home or self-care (01) ==
LOC: ER 23:36 → EDBD 23:36 → ER 06-17 06:52
DX: R10.31 Right lower quadrant pain (principal); E87.6 Hypokalemia; I10 Essential (primary) hypertension; R11.2 Nausea with vomiting, unspecified; R19.7 Diarrhea, unspecified; Z87.39 Personal history of other diseases of the musculoskeletal system and connective tissue; K21.9 Gastro-esophageal reflux disease without esophagitis; Z90.49 Acquired absence of other specified parts of digestive tract; Z90.710 Acquired absence of both cervix and uterus; Z79.2 Long term (current) use of antibiotics; Z79.899 Other long term (current) drug therapy
CPT/HCPCS: 36415; 71046; 74177; 80053; 81001; 83690; 83735; 84702; 85025; 93005; 96361; 96374; 96375; 96376; 99285; J1200; J2270; J2405; J7030; J7040; Q9967

== ENCOUNTER → 2021-10-28 12:54 | Emergency (ER) | payer MEDICAID ==
[~2021-10-28] VITALS: Ht 162.6 cm; Wt 56.7 kg
[~2021-10-28 12:54] MED LIST changes: +KETOROLAC TROMETH 30 MG/ML 1ML VIAL IV ONE; +SODIUM CHLORIDE 0.9% 1,000 ML IV ONE
[2021-10-28 12:55] VITALS: BP 162/91
[2021-10-28 14:39] LABS: Basophils # (auto) 0.1 10 ^3/uL (0-0.2); Basophils % (auto) 1.6 % (0.0-2.0); Eosinophils # (auto) 0.2 10 ^3/uL (0-0.8); Eosinophils % (auto) 2.6 % (0.0-7.0); Hematocrit 37.5 % (36.0-46.0); Hemoglobin 12.4 g/dL (12.2-16.2); Lymphocytes # (auto) 1.7 10 ^3/uL (0.4-5.4); Mean Corpuscular Hgb Conc. 32.9 g/dL (32.0-36.0); Mean Corpuscular Volume 84.8 fL (80.0-100.0); Monocytes # (auto) 0.5 10 ^3/uL (0-1.3); Monocytes % (auto) 7.8 % (0.0-12.0); Red Blood Cells 4.42 10^6/uL (4.0-5.20); Red Cell Distribution Width 15.8 % (11.8-14.3); White Blood Cell 6.5 10^3/uL (4.4-10.8)
[2021-10-28 14:56] LABS: Albumin 3.5 g/dL (3.4-5.0); Calcium 8.6 mg/dL (8.5-10.1); Potassium 4.3 mmol/L (3.5-5.1)
[2021-10-28 14:59] LABS: BUN/Creatinine Ratio 32.3; Bilirubin, Total 0.5 mg/dL (0.2-1.0); Total Protein 6.8 g/dL (6.4-8.2)
[2021-10-28 16:14] LABS: Magnesium 2.3 mg/dL (1.6-2.6)
[2021-10-28 18:19] LABS: Urine Bacteria NONE SEEN /hpf (None Seen); Urine Blood Negative /uL (Negative); Urine Specific Gravity 1.024 (1.001-1.035); Urine WBC <1 /hpf (0 - 5)
== END | disposition home or self-care (01) ==
LOC: ER 12:54
DX: R10.13 Epigastric pain (principal); I10 Essential (primary) hypertension; K21.9 Gastro-esophageal reflux disease without esophagitis; Z90.49 Acquired absence of other specified parts of digestive tract; Z90.710 Acquired absence of both cervix and uterus
CPT/HCPCS: 36415; 71046; 74176; 80053; 81001; 83690; 83735; 84484; 85025; 93005

== ENCOUNTER 2022-02-18 10:42 | Emergency (ER) | payer MEDICAID ==
[~2022-02-18] VITALS: Ht 165.1 cm; Wt 59.0 kg
[~2022-02-18 10:42] MED LIST changes: -KETOROLAC TROMETH 30 MG/ML 1ML VIAL IV ONE; -SODIUM CHLORIDE 0.9% 1,000 ML IV ONE
[2022-02-18 10:48] VITALS: BP 177/103
[2022-02-18 11:50] LABS: Urine Bacteria NONE SEEN /hpf (None Seen); Urine Blood TRACE /uL (Negative); Urine Mucus FEW (None Seen); Urine Specific Gravity 1.028 (1.001-1.035); Urine WBC 2 /hpf (0 - 5)
== END 2022-02-18 12:22 | disposition left against medical advice (07) ==
LOC: ER 10:42
DX: R10.9 Unspecified abdominal pain (principal); R11.2 Nausea with vomiting, unspecified; Z53.21 Procedure and treatment not carried out due to patient leaving prior to being seen by health care provider
CPT/HCPCS: 81001

== ENCOUNTER 2022-04-23 16:38 | Inpatient (IN) | payer MEDICAID ==
[~2022-04-23] VITALS: Ht 162.6 cm; Wt 70.1 kg
[~2022-04-23 16:38] MED LIST changes: -PREG150C PO; -SUMAPOW3 XX
[2022-04-23] MEDS ORDERED: AMMONIA 0.33 ML INHALANT IN ONE (17:17)
[2022-04-23 17:56] LABS: Basophils # (auto) 0 10 ^3/uL (0-0.2); Basophils % (auto) 0.5 % (0.0-2.0); Eosinophils # (auto) 0.1 10 ^3/uL (0-0.8); Eosinophils % (auto) 1.3 % (0.0-7.0); Hematocrit 34.6 % (36.0-46.0); Hemoglobin 11.1 g/dL (12.2-16.2); Lymphocytes # (auto) 2.4 10 ^3/uL (0.4-5.4); Lymphocytes % (auto) 26.2 % (10.0-50.0); Mean Corpuscular Hgb Conc. 31.9 g/dL (32.0-36.0); Mean Corpuscular Volume 87.8 fL (80.0-100.0); Monocytes # (auto) 0.6 10 ^3/uL (0-1.3); Monocytes % (auto) 6.1 % (0.0-12.0); Neutrophils % (auto) 65.9 % (37.0-80.0); Red Blood Cells 3.94 10^6/uL (4.0-5.20); Red Cell Distribution Width 15.8 % (11.8-14.3); White Blood Cell 9.1 10^3/uL (4.4-10.8)
[2022-04-23 18:14] LABS: Calcium 8.5 mg/dL (8.5-10.1); Magnesium 2.2 mg/dL (1.6-2.6); Potassium 3.9 mmol/L (3.5-5.1)
[2022-04-23 18:17] LABS: BUN/Creatinine Ratio 21.4; Bilirubin, Total 0.3 mg/dL (0.2-1.0); Total Protein 6.4 g/dL (6.4-8.2)
[2022-04-23] MEDS ORDERED: FUROSEMIDE 40 MG/4 ML VIAL IV ONE (21:00)
[2022-04-23] MEDS ORDERED: ONDANSETRON HCL 4 MG/2 ML VIAL IV PRN (22:45)
[2022-04-24 00:07] LABS: Urine Bacteria NONE SEEN /hpf (None Seen); Urine Blood Negative /uL (Negative); Urine Mucus FEW (None Seen); Urine WBC 1 /hpf (0 - 5)
[2022-04-24 06:11] LABS: Basophils # (auto) 0 10 ^3/uL (0-0.2); Basophils % (auto) 0.5 % (0.0-2.0); Eosinophils # (auto) 0.1 10 ^3/uL (0-0.8); Eosinophils % (auto) 1.8 % (0.0-7.0); Hematocrit 36.2 % (36.0-46.0); Hemoglobin 11.7 g/dL (12.2-16.2); Lymphocytes % (auto) 27.2 % (10.0-50.0); Mean Corpuscular Hemoglobin 28.2 pg (28.0-32.0); Mean Corpuscular Hgb Conc. 32.3 g/dL (32.0-36.0); Mean Corpuscular Volume 87.1 fL (80.0-100.0); Monocytes # (auto) 0.6 10 ^3/uL (0-1.3); Monocytes % (auto) 8.2 % (0.0-12.0); Neutrophils # (auto) 4.6 10 ^3/uL (1.6-8.6); Neutrophils % (auto) 62.3 % (37.0-80.0); Red Blood Cells 4.16 10^6/uL (4.0-5.20); Red Cell Distribution Width 16.2 % (11.8-14.3); White Blood Cell 7.4 10^3/uL (4.4-10.8)
[2022-04-24 06:17] LABS: Potassium 3.6 mmol/L (3.5-5.1)
[2022-04-24 06:19] LABS: BUN/Creatinine Ratio 23.7; Calcium 8.7 mg/dL (8.5-10.1)
[2022-04-24 06:21] LABS: Bilirubin, Total 0.5 mg/dL (0.2-1.0); Total Protein 6.4 g/dL (6.4-8.2)
[2022-04-24] MEDS: ACETAMINOPHEN 500 MG TAB PO PRN ×3 (08:33→23:36)
[2022-04-24] MEDS ORDERED: OXYC325T14 PO (18:03)
[2022-04-24] MEDS ORDERED: HYDR4TAB2 PO (18:03)
[2022-04-24] MEDS ORDERED: OXYCODONE W/ ACETAMINOPHEN 5/325MG TABLET PO PRN (18:45)
[2022-04-24] MEDS ORDERED: ACETAMINOPHEN 500 MG TAB PO PRN (19:15)
[2022-04-24] MEDS: OXYCODONE W/ ACETAMINOPHEN 5/325MG TABLET PO PRN (19:30)
[2022-04-24 21:43] LABS: Alcohol, Urine < 3.0 mg/dL (0-10); Amphetamine Screen, Urine NEGATIVE (NEGATIVE); Barbiturate Scree,Urine NEGATIVE (NEGATIVE); Benzodiazephine Screen, Urine NEGATIVE (NEGATIVE); Cannabinoid Screen, Urine NEGATIVE (NEGATIVE); Cocaine Screen, Urine NEGATIVE (NEGATIVE); Opiate Scree,Urine NEGATIVE (NEGATIVE); Phencyclidine Screen, Urine NEGATIVE (NEGATIVE)
[2022-04-24 22:00] VITALS: BP 134/79
[2022-04-25] MEDS: OXYCODONE W/ ACETAMINOPHEN 5/325MG TABLET PO PRN ×2 (01:05→07:00)
[2022-04-25 05:00] VITALS: BP 115/73
[2022-04-25] MEDS ORDERED: BUSP10TA90 PO (05:36)
[2022-04-25 06:34] LABS: Basophils # (auto) 0 10 ^3/uL (0-0.2); Basophils % (auto) 0.4 % (0.0-2.0); Eosinophils # (auto) 0.2 10 ^3/uL (0-0.8); Eosinophils % (auto) 3.2 % (0.0-7.0); Hematocrit 36.4 % (36.0-46.0); Hemoglobin 12.2 g/dL (12.2-16.2); Lymphocytes # (auto) 2.4 10 ^3/uL (0.4-5.4); Lymphocytes % (auto) 36.2 % (10.0-50.0); Mean Corpuscular Hemoglobin 29.1 pg (28.0-32.0); Mean Corpuscular Hgb Conc. 33.4 g/dL (32.0-36.0); Mean Corpuscular Volume 87.2 fL (80.0-100.0); Monocytes # (auto) 0.5 10 ^3/uL (0-1.3); Monocytes % (auto) 8.1 % (0.0-12.0); Neutrophils # (auto) 3.4 10 ^3/uL (1.6-8.6); Neutrophils % (auto) 52.1 % (37.0-80.0); Nucleated Red Blood Cells % 0.1 %; Red Blood Cells 4.18 10^6/uL (4.0-5.20); Red Cell Distribution Width 16.1 % (11.8-14.3); White Blood Cell 6.5 10^3/uL (4.4-10.8)
[2022-04-25 06:51] LABS: Albumin 3.1 g/dL (3.4-5.0); BUN/Creatinine Ratio 25.3; Calcium 8.7 mg/dL (8.5-10.1); Potassium 4.1 mmol/L (3.5-5.1)
[2022-04-25 06:54] LABS: Bilirubin, Total 0.3 mg/dL (0.2-1.0); Total Protein 6.7 g/dL (6.4-8.2)
[2022-04-25 09:00] VITALS: BP 123/85
[2022-04-25] MEDS ORDERED: LORA2TAB89 PO (11:07)
[2022-04-25 13:00] VITALS: BP 130/73
[2022-04-25] MEDS: HYDROmorphone HCL 2 MG TAB PO PRN ×2 (13:32→20:10)
[2022-04-25] MEDS ORDERED: HYDROmorphone HCL 2 MG TAB PO SCH (14:00)
[2022-04-25] MEDS ORDERED: ALPRAZolam 0.5 MG TAB PO PRN (15:45)
[2022-04-25 16:39] VITALS: BP 129/82
[2022-04-25] MEDS: busPIRone HCL 10 MG TAB PO SCH (21:29)
[2022-04-25 22:00] VITALS: BP 144/84
[2022-04-26] MEDS: ACETAMINOPHEN 500 MG TAB PO PRN (01:08)
[2022-04-26] MEDS: HYDROmorphone HCL 2 MG TAB PO PRN (04:04)
[2022-04-26 04:57] VITALS: BP 120/80
[2022-04-26 09:00] VITALS: BP 150/75
[2022-04-26] MEDS: busPIRone HCL 10 MG TAB PO SCH (09:22)
[2022-04-26] MEDS ORDERED: PANTOPRAZOLE 40 MG TAB PO SCH (10:00)
[2022-04-26 13:00] VITALS: BP 116/76
[2022-04-26 16:23] VITALS: BP 132/93
[2022-04-26 16:54] VITALS: BP 128/79
== END 2022-04-26 18:10 | disposition home or self-care (01) | DRG 861 ==
LOC: ER 16:38 → TELE-WESTW 16:42 → TELE 21:45 → TELE-WESTW 04-24 17:42
PROVIDERS: ADMIT Internal Medicine; ATTEND Internal Medicine
DX: R53.1 Weakness (principal); G93.40 Encephalopathy, unspecified; F31.9 Bipolar disorder, unspecified; F41.9 Anxiety disorder, unspecified; R55 Syncope and collapse; I10 Essential (primary) hypertension; M06.9 Rheumatoid arthritis, unspecified; Z20.822 Contact with and (suspected) exposure to COVID-19; K21.9 Gastro-esophageal reflux disease without esophagitis; Z88.8 Allergy status to other drugs, medicaments and biological substances; Z79.899 Other long term (current) drug therapy; Z82.3 Family history of stroke; Z82.49 Family history of ischemic heart disease and other diseases of the circulatory system; Z83.3 Family history of diabetes mellitus; Z90.49 Acquired absence of other specified parts of digestive tract; Z90.710 Acquired absence of both cervix and uterus
CPT/HCPCS: 36415; 71045; 80053; 80307; 80320; 81001; 82140; 83605; 83735; 83880; 84443; 84484; 85025; 87040; 93005; 93306; G0378

== ENCOUNTER 2022-04-30 09:58 | Inpatient (IN) | payer MEDICAID ==
[~2022-04-30] VITALS: Ht 165.1 cm; Wt 69.6 kg
[~2022-04-30 09:58] MED LIST changes: +BUSP10TA90 PO; -DICY20TA PO; +HYDR4TAB2 PO; -LISI20TA28 PO; +LORA2TAB89 PO; -MET25T PO; -SUCR1TAB22 PO; -TRAZ100T3 PO; -VANC125PO PO
[2022-04-30 11:03] LABS: Urine Bacteria MANY /hpf (None Seen); Urine Blood 1+ /uL (Negative); Urine WBC 217 /hpf (0 - 5)
[2022-04-30 11:35] LABS: Basophils # (auto) 0 10 ^3/uL (0-0.2); Basophils % (auto) 0.2 % (0.0-2.0); Eosinophils # (auto) 0 10 ^3/uL (0-0.8); Eosinophils % (auto) 0.2 % (0.0-7.0); Hematocrit 36.6 % (36.0-46.0); Hemoglobin 11.6 g/dL (12.2-16.2); Lymphocytes # (auto) 0.8 10 ^3/uL (0.4-5.4); Lymphocytes % (auto) 5.9 % (10.0-50.0); Mean Corpuscular Hemoglobin 28.1 pg (28.0-32.0); Mean Corpuscular Hgb Conc. 31.9 g/dL (32.0-36.0); Mean Corpuscular Volume 88.2 fL (80.0-100.0); Monocytes # (auto) 0.4 10 ^3/uL (0-1.3); Neutrophils # (auto) 12.1 10 ^3/uL (1.6-8.6); Neutrophils % (auto) 90.7 % (37.0-80.0); Red Blood Cells 4.14 10^6/uL (4.0-5.20); White Blood Cell 13.3 10^3/uL (4.4-10.8)
[2022-04-30 11:59] LABS: Albumin 3.1 g/dL (3.4-5.0); Calcium 8.9 mg/dL (8.5-10.1); Potassium 4.2 mmol/L (3.5-5.1)
[2022-04-30 12:04] LABS: BUN/Creatinine Ratio 23.5; Bilirubin, Total 0.5 mg/dL (0.2-1.0); Total Protein 7.8 g/dL (6.4-8.2)
[2022-04-30] MEDS ORDERED: cefTRIAXone 1GM/50ML D5W 50 ML IV ONE (14:30)
[2022-04-30] MEDS ORDERED: IOHEXOL 350 MG/ML 100ML IJ ONE (14:43)
[2022-04-30] MEDS ORDERED: NITROGLYCERIN 0.4 MG SL TAB SL PRN (16:45)
[2022-04-30] MEDS ORDERED: ACETAMINOPHEN 325 MG TAB PO PRN (16:45)
[2022-04-30] MEDS ORDERED: AZITHROMYCIN 500MG/ 250ML 250 ML IV SCH (16:55)
[2022-04-30 18:19] LABS: Basophils # (auto) 0 10 ^3/uL (0-0.2); Basophils % (auto) 0.4 % (0.0-2.0); Eosinophils # (auto) 0.1 10 ^3/uL (0-0.8); Eosinophils % (auto) 0.4 % (0.0-7.0); Hematocrit 33.4 % (36.0-46.0); Hemoglobin 10.6 g/dL (12.2-16.2); Lymphocytes # (auto) 1.8 10 ^3/uL (0.4-5.4); Lymphocytes % (auto) 13.9 % (10.0-50.0); Mean Corpuscular Hgb Conc. 31.9 g/dL (32.0-36.0); Mean Corpuscular Volume 87.7 fL (80.0-100.0); Monocytes # (auto) 0.8 10 ^3/uL (0-1.3); Monocytes % (auto) 5.7 % (0.0-12.0); Neutrophils # (auto) 10.5 10 ^3/uL (1.6-8.6); Neutrophils % (auto) 79.6 % (37.0-80.0); Red Blood Cells 3.81 10^6/uL (4.0-5.20); Red Cell Distribution Width 15.9 % (11.8-14.3); White Blood Cell 13.2 10^3/uL (4.4-10.8)
[2022-04-30] MEDS: ONDANSETRON HCL 4 MG/2 ML VIAL IV PRN (20:58)
[2022-04-30] MEDS: MORPHINE SULFATE INJ 2 MG/ml SYRG IV PRN (21:01)
[2022-04-30 22:50] VITALS: BP 114/59
[2022-05-01] VITALS (7 sets, daily range): BP systolic 96–136; BP diastolic 58–79
[2022-05-01] MEDS: ONDANSETRON HCL 4 MG/2 ML VIAL IV PRN ×2 (01:08→05:52)
[2022-05-01] MEDS: MORPHINE SULFATE INJ 2 MG/ml SYRG IV PRN ×2 (01:08→05:54)
[2022-05-01] MEDS ORDERED: LORazepam 0.5 MG TAB PO PRN (05:00)
[2022-05-01] MEDS: diphenhdrAMINE HCL 25 MG CAP PO PRN ×2 (05:54→20:44)
[2022-05-01 06:49] LABS: Albumin 2.5 g/dL (3.4-5.0); Calcium 8.5 mg/dL (8.5-10.1); Potassium 4.3 mmol/L (3.5-5.1)
[2022-05-01 06:53] LABS: BUN/Creatinine Ratio 23.3; Bilirubin, Total 0.5 mg/dL (0.2-1.0); Total Protein 6.6 g/dL (6.4-8.2)
[2022-05-01] MEDS: ENOXAPARIN SOD 40 MG/0.4 ML SYRINGE SC SCH (09:10)
[2022-05-01] MEDS: PANTOPRAZOLE 40 MG TAB PO SCH (09:11)
[2022-05-01] MEDS: busPIRone HCL 10 MG TAB PO SCH ×2 (09:11→21:19)
[2022-05-01] MEDS ORDERED: cefTRIAXone 1GM/50ML D5W 50 ML IV SCH (10:00)
[2022-05-01] MEDS: HYDROmorphone HCL 2 MG TAB PO SCH ×2 (14:02→21:21)
[2022-05-01] MEDS ORDERED: VANCOMYCIN PER PHARMACY 0 MG IV STA (15:19)
[2022-05-01] MEDS ORDERED: VANCOMYCIN PER PHARMACY 0 MG IV SCH (15:45)
[2022-05-01] MEDS: VANCOMYCIN 1GM/250ML 250 ML IV SCH (15:56)
[2022-05-01 16:45] LABS: Basophils # (auto) 0 10 ^3/uL (0-0.2); Basophils % (auto) 0.5 % (0.0-2.0); Eosinophils # (auto) 0.3 10 ^3/uL (0-0.8); Eosinophils % (auto) 3.2 % (0.0-7.0); Hemoglobin 12.3 g/dL (12.2-16.2); Lymphocytes # (auto) 2.3 10 ^3/uL (0.4-5.4); Lymphocytes % (auto) 26.5 % (10.0-50.0); Mean Corpuscular Hemoglobin 27.7 pg (28.0-32.0); Mean Corpuscular Hgb Conc. 31.6 g/dL (32.0-36.0); Mean Corpuscular Volume 87.8 fL (80.0-100.0); Monocytes # (auto) 0.5 10 ^3/uL (0-1.3); Monocytes % (auto) 5.5 % (0.0-12.0); Neutrophils # (auto) 5.6 10 ^3/uL (1.6-8.6); Neutrophils % (auto) 64.3 % (37.0-80.0); Red Blood Cells 4.44 10^6/uL (4.0-5.20); Red Cell Distribution Width 15.5 % (11.8-14.3); White Blood Cell 8.7 10^3/uL (4.4-10.8)
[2022-05-02] MEDS: VANCOMYCIN 1GM/250ML 250 ML IV SCH ×2 (02:04→11:35)
[2022-05-02 05:00] VITALS: BP 107/73
[2022-05-02] MEDS: HYDROmorphone HCL 2 MG TAB PO SCH ×3 (06:14→21:34)
[2022-05-02] MEDS: ENOXAPARIN SOD 40 MG/0.4 ML SYRINGE SC SCH (08:33)
[2022-05-02] MEDS: PANTOPRAZOLE 40 MG TAB PO SCH (08:33)
[2022-05-02] MEDS: busPIRone HCL 10 MG TAB PO SCH ×2 (08:34→21:33)
[2022-05-02 08:58] VITALS: BP 115/67
[2022-05-02 09:00] LABS: Potassium 4.2 mmol/L (3.5-5.1)
[2022-05-02 09:07] LABS: Albumin 2.6 g/dL (3.4-5.0); BUN/Creatinine Ratio 23.1; Bilirubin, Total 0.3 mg/dL (0.2-1.0); Calcium 8.5 mg/dL (8.5-10.1); Total Protein 6.3 g/dL (6.4-8.2)
[2022-05-02 13:00] VITALS: BP_SYST 115; BP_SYST 120; BP_DIAS 66; BP_DIAS 70
[2022-05-02 16:50] VITALS: BP 139/84
[2022-05-02] MEDS ORDERED: diphenhdrAMINE HCL 25 MG CAP PO PRN (18:00)
[2022-05-02 19:49] LABS: Basophils # (auto) 0 10 ^3/uL (0-0.2); Basophils % (auto) 0.7 % (0.0-2.0); Eosinophils # (auto) 0.3 10 ^3/uL (0-0.8); Eosinophils % (auto) 5.3 % (0.0-7.0); Hematocrit 36.2 % (36.0-46.0); Hemoglobin 11.5 g/dL (12.2-16.2); Lymphocytes # (auto) 1.4 10 ^3/uL (0.4-5.4); Lymphocytes % (auto) 22.2 % (10.0-50.0); Mean Corpuscular Hemoglobin 27.5 pg (28.0-32.0); Mean Corpuscular Hgb Conc. 31.7 g/dL (32.0-36.0); Mean Corpuscular Volume 86.8 fL (80.0-100.0); Monocytes # (auto) 0.4 10 ^3/uL (0-1.3); Monocytes % (auto) 5.9 % (0.0-12.0); Neutrophils # (auto) 4.1 10 ^3/uL (1.6-8.6); Neutrophils % (auto) 65.9 % (37.0-80.0); Nucleated Red Blood Cells % 0.1 %; Red Blood Cells 4.18 10^6/uL (4.0-5.20); Red Cell Distribution Width 15.2 % (11.8-14.3); White Blood Cell 6.2 10^3/uL (4.4-10.8)
[2022-05-02] MEDS ORDERED: TPN PER PHARMACY IV NR ×9 (20:00)
[2022-05-02] MEDS: DOXYCYCLINE 100 MG TAB/CAP PO SCH (21:33)
[2022-05-02 22:00] VITALS: BP 141/82
[2022-05-02] MEDS ORDERED: LORazepam 0.5 MG TAB PO PRN (22:00)
[2022-05-03 05:00] VITALS: BP 126/85
[2022-05-03] MEDS: HYDROmorphone HCL 2 MG TAB PO SCH ×2 (05:49→14:10)
[2022-05-03 08:21] VITALS: BP 135/89
[2022-05-03] MEDS ORDERED: DOXY-346 PO (09:44)
[2022-05-03] MEDS: ENOXAPARIN SOD 40 MG/0.4 ML SYRINGE SC SCH (10:24)
[2022-05-03] MEDS: PANTOPRAZOLE 40 MG TAB PO SCH (10:24)
[2022-05-03] MEDS: busPIRone HCL 10 MG TAB PO SCH (10:24)
[2022-05-03] MEDS ORDERED: ACETAMINOPHEN 325 MG TAB PO ONE (10:30)
[2022-05-03] MEDS: DOXYCYCLINE 100 MG TAB/CAP PO SCH (10:32)
[2022-05-03 12:37] VITALS: BP 128/83
== END 2022-05-03 16:05 | disposition home or self-care (01) | DRG 133 ==
LOC: ER 09:58 → TELE 16:32 → TELE-CENTR 22:50
PROVIDERS: ADMIT Internal Medicine; ATTEND Internal Medicine
PROC: 05H933Z Insertion of Infusion Device into Right Brachial Vein, Percutaneous Approach (ICD-10-PCS; principal; 2022-05-01)
PROC: B54MZZA Ultrasonography of Right Upper Extremity Veins, Guidance (ICD-10-PCS; 2022-05-01)
DX: J96.01 Acute respiratory failure with hypoxia (principal); G89.29 Other chronic pain; I10 Essential (primary) hypertension; J98.11 Atelectasis; K21.9 Gastro-esophageal reflux disease without esophagitis; M19.90 Unspecified osteoarthritis, unspecified site; Z20.822 Contact with and (suspected) exposure to COVID-19; N39.0 Urinary tract infection, site not specified; Z82.3 Family history of stroke; Z82.49 Family history of ischemic heart disease and other diseases of the circulatory system; Z83.3 Family history of diabetes mellitus; Z90.710 Acquired absence of both cervix and uterus; Z88.5 Allergy status to narcotic agent; Z90.49 Acquired absence of other specified parts of digestive tract
CPT/HCPCS: 36415; 36600; 70450; 71045; 71275; 80053; 81001; 81025; 82805; 83605; 83880; 85025; 85379; 87040; 87077; 87081; 87186; 93005; 96365; 96366; 96368; 97116; 97163; 97530; 99291; G0378; J0696; J2405

== ENCOUNTER 2022-05-20 04:52 | Emergency (ER) | payer MEDICAID ==
[~2022-05-20] VITALS: Ht 162.6 cm; Wt 70.0 kg
[~2022-05-20 04:52] MED LIST changes: +DOXY-346 PO; -HYDR4TAB2 PO
[2022-05-20 08:46] LABS: Basophils # (auto) 0.1 10 ^3/uL (0-0.2); Basophils % (auto) 0.9 % (0.0-2.0); Eosinophils # (auto) 0 10 ^3/uL (0-0.8); Eosinophils % (auto) 0.5 % (0.0-7.0); Hematocrit 36.5 % (36.0-46.0); Lymphocytes # (auto) 1.7 10 ^3/uL (0.4-5.4); Lymphocytes % (auto) 23.2 % (10.0-50.0); Mean Corpuscular Hemoglobin 28.1 pg (28.0-32.0); Mean Corpuscular Hgb Conc. 32.8 g/dL (32.0-36.0); Mean Corpuscular Volume 85.9 fL (80.0-100.0); Monocytes # (auto) 0.5 10 ^3/uL (0-1.3); Monocytes % (auto) 7.4 % (0.0-12.0); Red Blood Cells 4.26 10^6/uL (4.0-5.20); White Blood Cell 7.4 10^3/uL (4.4-10.8)
[2022-05-20 09:02] LABS: Calcium 9.2 mg/dL (8.5-10.1); Potassium 3.1 mmol/L (3.5-5.1)
[2022-05-20 09:06] LABS: BUN/Creatinine Ratio 14.7; Bilirubin, Total 0.7 mg/dL (0.2-1.0); Salicylate < 1.7 mg/dL (2.8-20.0); Total Protein 8.1 g/dL (6.4-8.2)
[2022-05-20 09:11] LABS: Acetaminophen < 2.0 ug/mL (10-30)
[2022-05-20] MEDS ORDERED: traMADol HCL 50 MG TAB PO ONE (11:15)
[2022-05-20 11:26] LABS: Urine Bacteria FEW /hpf (None Seen); Urine Blood 1+ /uL (Negative); Urine Mucus FEW (None Seen); Urine Specific Gravity 1.019 (1.001-1.035); Urine WBC 4 /hpf (0 - 5)
[2022-05-20 11:45] LABS: Alcohol, Urine < 3.0 mg/dL (0-10); Amphetamine Screen, Urine NEGATIVE (NEGATIVE); Barbiturate Scree,Urine NEGATIVE (NEGATIVE); Benzodiazephine Screen, Urine NEGATIVE (NEGATIVE); Cannabinoid Screen, Urine NEGATIVE (NEGATIVE); Cocaine Screen, Urine NEGATIVE (NEGATIVE); Opiate Scree,Urine NEGATIVE (NEGATIVE); Phencyclidine Screen, Urine NEGATIVE (NEGATIVE)
[2022-05-20] MEDS ORDERED: IBUPROFEN 600 MG TAB PO ONE (11:45)
[2022-05-20] MEDS ORDERED: LORazepam 0.5 MG TAB PO ONE (15:15)
[2022-05-20] MEDS: VENLAFAXINE HCL 37.5mg XR cap PO SCH (16:27)
[2022-05-20] MEDS ORDERED: ACETAMINOPHEN 325 MG TAB PO ONE (20:45)
[2022-05-20] MEDS: busPIRone HCL 10 MG TAB PO SCH (22:40)
[2022-05-21] MEDS: LORazepam 0.5 MG TAB PO PRN (07:39)
[2022-05-21] MEDS: VENLAFAXINE HCL 37.5mg XR cap PO SCH (09:39)
[2022-05-21] MEDS: busPIRone HCL 10 MG TAB PO SCH ×2 (09:39→22:36)
[2022-05-21] MEDS ORDERED: ACETAMINOPHEN 325 MG TAB PO ONE ×2 (11:15→23:45)
[2022-05-21] MEDS ORDERED: POTASSIUM CHL 20 Meq TABLET PO ONE (11:15)
[2022-05-21] MEDS ORDERED: DIPHENOXYLATE W/ATROPINE 2.5 MG TAB PO ONE (11:30)
[2022-05-21] MEDS ORDERED: cloNIDine HCL 0.1 MG TAB PO ONE (17:00)
[2022-05-22] MEDS: LORazepam 0.5 MG TAB PO PRN (04:26)
[2022-05-22] MEDS ORDERED: amLODIPine BESYLATE 5 MG TAB PO ONE (06:45)
[2022-05-22] MEDS: VENLAFAXINE HCL 37.5mg XR cap PO SCH (11:28)
[2022-05-22] MEDS: busPIRone HCL 10 MG TAB PO SCH (11:28)
[2022-05-22 12:45] VITALS: BP 161/103
== END 2022-05-22 13:02 | disposition short-term general hospital (02) ==
LOC: ER 04:52
DX: R45.851 Suicidal ideations (principal); I10 Essential (primary) hypertension; K21.9 Gastro-esophageal reflux disease without esophagitis; Z90.49 Acquired absence of other specified parts of digestive tract; Z90.710 Acquired absence of both cervix and uterus; Z79.2 Long term (current) use of antibiotics; Z79.899 Other long term (current) drug therapy; Z88.8 Allergy status to other drugs, medicaments and biological substances; Z20.822 Contact with and (suspected) exposure to COVID-19
CPT/HCPCS: 36415; 80053; 80307; 80329; 81001; 85025; 87426; 99285; C9803; U0003